=== PATIENT | female | born 1985 | race Caucasian/White ===

== ENCOUNTER 2016-04-25 07:04 | Inpatient (IN) | payer BC ==
[~2016-04-25] VITALS: Ht 160 cm; Wt 61.0 kg
[~2016-04-25 07:04] MED LIST: AMPH30TA2 PO; BCPILLS PO; MULT-506 PO
[2016-04-25 07:35] LABS: URINE APPEARANCE CLOUDY (CLEAR); URINE BILIRUBIN NEG (NEG); URINE COLOR YELLOW; URINE EPITHELIAL CELL AUTO >30 /lpf (0-5); URINE NITRITE NEG (NEG); URINE SPECIFIC GRAVITY 1.029 (1.000-1.030); UROBILINOGEN NEG (NEG)
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
[2016-04-25] MEDS ORDERED: CITA40TA4 PO (07:37)
[2016-04-25] MEDS ORDERED: MELATAB2 PO (07:37)
[2016-04-25] MEDS ORDERED: ATV5X PO (07:37)
[2016-04-25 07:38] LABS: MANUAL MICROSCOPIC REQUIRED? NO; REVIEW REQ? NO
[2016-04-25 07:52] LABS: BASO % 0.2 %; BASO ABS # 0.02 K/uL (0-0.2); COMPLETE YES; HEMATOCRIT 42.6 % (37-47); IG% 0.2 %; LYMPH % 16.4 %; LYMPH ABS # 1.47 K/uL (1.2-3.4); MEAN CELL VOLUME 89.5 fL (80-100); MEAN CORPUSCULAR HEMOGLOBIN 30.7 pg (25-34); MEAN CORPUSCULAR HGB CONC 34.3 g/dl (32-36); MEAN PLATELET VOLUME 9.5 fL (7.4-10.4); MONO % 5.7 %; NEUT % 77.5 %; PLATELET COUNT 281 K/uL (130-400); RED BLOOD COUNT 4.76 M/uL (4.2-5.4); WHITE BLOOD COUNT 8.95 K/uL (4.8-10.8)
[2016-04-25 08:07] LABS: BUN/CREATININE RATIO 15.7 (10-20); CALCIUM 9.1 mg/dl (8.5-10.1); CREATININE 0.58 mg/dl (0.60-1.20); POTASSIUM 3.9 mmol/L (3.5-5.1)
[2016-04-25 08:14] LABS: ACETAMINOPHEN < 2 ug/ml (10-30)
[2016-04-25 08:18] LABS: THYROID STIMULATING HORMONE 0.893 uIu/ml (0.300-4.500)
[2016-04-25 09:03] LABS: BENZODIAZEPINE, URINE NEG (NEG); COCAINE,URINE NEG (NEG); PHENCYCLIDINE, URINE NEG (NEG)
[2016-04-25 09:58] VITALS: O2SAT 98
[2016-04-25] MEDS ORDERED: BISMUTH SUBSALICYLATE PER ML OMNICELL CHARGE PO PRN (10:00)
[2016-04-25] MEDS ORDERED: SODIUM CHLORIDE 0.65% NA SOLN 45 ML (OCEAN) PRN (10:00)
[2016-04-25] MEDS ORDERED: ACETAMINOPHEN 325 MG TAB PO PRN (10:00)
[2016-04-25] MEDS ORDERED: hydrOXYzine HCL 25 MG TAB PO PRN ×2 (10:00)
[2016-04-25] MEDS ORDERED: ALUMINUM/MAGNESIUM SUSP 30 ML UDC PO PRN (10:00)
[2016-04-25] MEDS ORDERED: MAGNESIUM HYDROXIDE SUSP 30 ML UDC PO PRN (10:00)
[2016-04-25 11:47] VITALS: BP 118/78; PULSE 118; TEMP 36.6
[2016-04-25 12:08] VITALS: Ht 160 cm; Wt 61.0 kg
[2016-04-25] MEDS ORDERED: RISPERIDONE ODT 1MG PO PRN (12:30)
[2016-04-25] MEDS ORDERED: LORAZEPAM 1 MG TAB PO PRN (12:30)
[2016-04-25] MEDS ORDERED: LORAZEPAM 1 MG TAB PO ONE (12:45)
[2016-04-25] MEDS ORDERED: RISPERIDONE ODT 1MG PO ONE (13:00)
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
[2016-04-25] MEDS: LORAZEPAM 1 MG TAB PO SCH (21:21)
[2016-04-25] MEDS: RISPERIDONE ODT 1MG PO SCH (21:22)
[2016-04-26 06:54] VITALS: BP_SYST 105; BP_SYST 109; BP_DIAS 72; BP_DIAS 75; PULSE 109; PULSE 114; TEMP 36.4
[2016-04-26] MEDS: LORAZEPAM 1 MG TAB PO SCH (07:35)
[2016-04-26] MEDS: RISPERIDONE ODT 1MG PO SCH ×2 (07:35→21:39)
[2016-04-26 08:18] LABS: CHOLESTEROL/HDL RATIO 2.2
--- NOTE | 2016-04-26 10:52 | Psychiatric Progress Notes ---
Progress Note Date of Service Apr 26, 2016. Interval History 31 yo female admitted voluntarily with severe disturbances in mood, anxiety, sleep and thinking resulting in bizarre behaviors. Chief Complaint "I'm so tired I can't see straight.". Subjective Patient was seen & assessed interval progress reviewed with Treatment Team. The patient is very tired from the meds but is still pushing herself to go to groups. She says that she called her ex boyfriend to tell him she was sorry and tell him that she was in the hospital, but he said that he couldn't talk with her because he was instructed not to. She was hopeful to understand that he still cared about her, as she misses him, "I still love him.". She says that she feels "hurt, betrayed" by his behaviors, yet at the same time would like to be able to get back together with him "when this all blows over". She questions her own judgement in calling him, but was talking with her roommate who said she thought it was a good idea, and so thinks that she exercised reason by checking it with someone else. She believes that her thoughts are reality based today, and denies aud/vis hallucinations. We discuss the differential diagnoses including bipolar disorder, psychosis, anxiety, depression and agrees that they could all be possible. She was able to sleep for over 13 hours yesterday, but feels that she is having trouble thinking and talking clearly because of sedation. She denies SI/HI, denies aud/vis hallucinations. Review of Systems Constitutional: + fatigue ENT: No dental problems, No hearing loss, No nasal symptoms, No problem reported, No sore throat, No tinnitus, No trouble swallowing, No unusual epistaxis Respiratory: No cough, No dyspnea at rest, No dyspnea on exertion, No hemoptysis, No problem reported, No shortness of breath, No sputum, No wheezing Cardiovascular: No PND, No chest pain, No claudication, No edema, No orthopnea , No palpitations, No problem reported Abdomen: No GI bleeding, No constipation, No diarrhea, No nausea, No pain, No problem reported, No vomiting Musculoskeletal: No calf pain, No joint pain, No muscle pain, No problem reported, No swelling Neurologic: No balance problems, No memory loss, No numbness/tingling, No paralysis, No problem reported, No vertigo, No weakness Psychiatric: + depression symptoms Sleep Information Total Hours of Sleep: 13.00 Meal Information Percent of Breakfast Consumed: 100 Percent of Lunch Consumed: 100 Percent of Dinner Consumed: 75 Mental Status Exam During interview pt is: cooperative, other (tired) Appearance: appropriately dressed, appropriately groomed Eye contact is: fair Motor behavior is: no abnormal motor movements Speech: normal in rate, rhythm & volume Affect: mood congruent, tearful, blunted Mood is: depressed Thought process: goal directed Thought content: preoccupation (with ex BF) Suicidal thought are: denied Homicidal thoughts are: denied Hallucinations: denies auditory, denies visual Cognition: attention grossly intact Intelligence estimated to be: average Insight: impaired Judgement: impaired Impression Was able to sleep yesterday. Today is tired from meds. Will DC scheduled ativan but keep prn. Will continue risperdal to target possible yonatan induced by SSRI, possible psychosis. Mood clearly depressed, still grieving the end of relationship with BF, and question an ongoing degree of thought distortion related to her dealing with him. Will encourage social work to schedule meeting with parents for supplemental to be sure that all she is reporting is reality based. Continued Inpatient Care Requires inpatient care due to the severity of her condition, and the risk for harm to self and others due to impulsivity and distorted thoughts. Plan (1) Unspecified episodic mood disorder 04/26 -Continue risperdal 1 mg. BID - DC scheduled ativan due to sedation, but continue prn - Q 15 min checks for safety - Encourage participation in group and individual counseling - The patient will need psychiatric aftercare - Family meeting - Discourage contact with ex BF - FLP and FBS for monitoring on atypicals 04/26. WNL with the exception of total cholesterol 206 (2) Cannabis abuse 04/26 - Recommend abstinence (3) Alcohol abuse 04/26 -The patient's AUDIT score (11) suggest problematic drinking. Brief intervention was offered and accepted. Intervention was greater than 5 min. Brief interventions include assessing readiness to quit, advising patient to abstain from alcohol with agreement to set specific goals , anticipate barriers and problem solving solutions. The patient is contemplative with regards to transtheoretical model of change. The patient is advised to decrease alcohol consumption due to depressant effects and risk of interactions with prescription medications. The patient agreed to abstain and will be provided with recovery materals to continue to educate self on how to cope without drinking. Visit Code E&M Code: 77061 Risk Factors Assessment : Yes /single/: Yes Higher / Fall in social status: No Access to guns: No Health problems: No Mental Health Diagnoses: Yes Substance use disorders: Yes Previous attempt: No Previous psychiatric stay: No Smoker: No Protective Factors Assessment Latter Day beliefs: No : No Responsible for young children: No Employed: Yes Stable relationships: No Supportive family: Yes Data Vital Signs Last 24 Hrs: Date Time Temp Pulse Resp B/P Pulse Ox O2 Delivery O2 Flow Rate FiO2 04/26/16 06:54 36.4 109 16 105/72 114 109/75 04/25/16 11:47 36.6 118 16 118/78 Meds Administered Last 24 Hrs: Meds Administered (Past 24Hrs) Medications (Trade) Dose Ordered Sig/Nya Route Start Time Stop Time Status Last Admin Dose Admin Risperidone (Risperdal M Tab) 1 mg BID PO 04/25/16 22:00 05/25/16 21:59 04/26/16 07:35 1 MG Risperidone (Risperdal M Tab) 1 mg NOW ONCE PO 04/25/16 13:00 04/25/16 13:01 DC 04/25/16 13:14 1 MG Lorazepam (Ativan Tab) 1 mg BID PO 04/25/16 22:00 05/25/16 21:59 04/26/16 07:35 1 MG Lorazepam (Ativan Tab) 1 mg NOW ONCE PO 04/25/16 12:45 04/25/16 12:46 DC 04/25/16 13:14 1 MG Risperidone (Risperdal M Tab) 1 mg BID PRN PO 04/25/16 12:30 05/25/16 12:29 04/25/16 14:38 1 MG Lorazepam (Ativan Tab) 1 mg Q4H PRN PO 04/25/16 12:30 05/25/16 12:29 04/25/16 14:38 1 MG Lab Results Last 24 Hrs: Last 24 Hours Test 04/26/16 07:18 Fasting Glucose 92 mg/dl Triglycerides Level 104 mg/dl Cholesterol Level 206 mg/dl HDL Cholesterol 92 mg/dl LDL Cholesterol, Calculated 93 mg/dl VLDL Cholesterol, Calculated 21 mg/dl Cholesterol/HDL Ratio 2.2
[2016-04-27 06:35] VITALS: BP_SYST 100; BP_SYST 122; BP_DIAS 67; BP_DIAS 86; PULSE 105; PULSE 89; TEMP 36.9
[2016-04-27] MEDS: RISPERIDONE ODT 1MG PO SCH (07:38)
--- NOTE | 2016-04-27 12:28 | Psychiatric Progress Notes ---
Progress Note Date of Service Apr 27, 2016. Interval History 31 yo female admitted voluntarily with severe disturbances in mood, anxiety, sleep and thinking resulting in bizarre behaviors. Chief Complaint "I feel like I'm gonna cry now". Subjective Patient was seen & assessed interval progress reviewed with nursing. Staff report she is attending and participating in groups, has been calm and cooperative with care, and appears to be eating and sleeping well. Her mother visited last eating, and they will have a family meeting this afternoon. Today , she states that she is very upset, as "thought I was doing okay, but they have me on sleep medicine morning and night, and now I'm nauseous, and I'm not okay." She has some difficulty calming down and clarifying her concerns. She reports excessive sleepiness, and thinks this is from the medication, although also stated she had not been sleeping for 2 weeks prior to admission. She attributes her lack of sleep to an increase in Celexa. She is upset after reviewing her treatment team and hearing her length of stay, as she was hoping to leave the hospital in a day or 2. She says she is here because "I had a freak out about my ex, was selling himself on [employer] list, hadn't slept for a long time because they upped my citalopram." Her mood is "just tired, kind of chill, here, hopeful in a way." She denies thoughts of harming herself or anyone else. She thinks it's been helpful to go to groups and to "know I'm not alone." She is not sure what she wants to talk about with her mother in their meeting, stating "someone told me it's because of them that I have to stay, they 're scared, which I can understand, but I'm gonna be mad." She reports blurred vision, noting that she is supposed to wear glasses for long distances but does not usually wear them, but it seems worse here. Sleep Information Total Hours of Sleep: 8.00 Meal Information Percent of Breakfast Consumed: 100 Percent of Lunch Consumed: 90 Percent of Dinner Consumed: 100 Mental Status Exam During interview pt is: cooperative Appearance: appropriately dressed, appropriately groomed Eye contact is: fair Motor behavior is: steady gait & station, no abnormal motor movements Speech: normal in rate, rhythm & volume Affect: tearful, labile, other (incongruent with stated mood) Mood is: other ("better") Thought process: goal directed Thought content: reality based without delusions Suicidal thought are: denied Homicidal thoughts are: denied Hallucinations: denies auditory, denies visual Cognition: attention grossly intact Intelligence estimated to be: average Insight: impaired Judgement: impaired Impression Sleep has improved, but is concerned that daytime sleepiness is due to medications.. Scheduled Ativan has been discontinued, and will consolidate risperidone to bedtime to try to limit daytime sedation. Mood depressed and labile, still grieving the end of relationship with BF, and question an ongoing degree of thought distortion related to her dealing with him. Will encourage social work to schedule meeting with parents for supplemental to be sure that all she is reporting is reality based. Continued Inpatient Care Requires inpatient care due to the severity of her condition, and the risk for harm to self and others due to impulsivity and distorted thoughts. Plan (1) Unspecified episodic mood disorder 04/26 - Continue risperdal 1 mg. BID - DC scheduled ativan due to sedation, but continue prn - Q 15 min checks for safety - Encourage participation in group and individual counseling - The patient will need psychiatric aftercare - Family meeting - Discourage contact with ex BF - FLP and FBS for monitoring on atypicals 04/26. WNL with the exception of total cholesterol 206 04/27 - Consolidate risperidone to 2 mg at bedtime for tomorrow. - Family meeting with mother today. - Will need outpatient psychiatric follow-up. (2) Cannabis abuse 04/26 - Recommend abstinence (3) Alcohol abuse 04/26 -The patient's AUDIT score (11) suggest problematic drinking. Brief intervention was offered and accepted. Intervention was greater than 5 min. Brief interventions include assessing readiness to quit, advising patient to abstain from alcohol with agreement to set specific goals , anticipate barriers and problem solving solutions. The patient is contemplative with regards to transtheoretical model of change. The patient is advised to decrease alcohol consumption due to depressant effects and risk of interactions with prescription medications. The patient agreed to abstain and will be provided with recovery materals to continue to educate self on how to cope without drinking. Discharge / Aftercare Planning Primary Care Physician: Name: Dr Rodriguez at [facility] Phone Number: [phone] Psychiatrist: Name: fariha Dramatic Coach: Name: fariha Visit Code E&M Code: 29269 Risk Factors Assessment : Yes /single/: Yes Higher / Fall in social status: No Access to guns: No Health problems: No Mental Health Diagnoses: Yes Substance use disorders: Yes Previous attempt: No Previous psychiatric stay: No Smoker: No Protective Factors Assessment Denominational beliefs: No : No Responsible for young children: No Employed: Yes Stable relationships: No Supportive family: Yes Data Vital Signs Last 24 Hrs: Date Time Temp Pulse Resp B/P Pulse Ox O2 Delivery O2 Flow Rate FiO2 04/27/16 06:35 36.9 105 16 100/67 89 122/86 Meds Administered Last 24 Hrs: Meds Administered (Past 24Hrs) Medications (Trade) Dose Ordered Sig/Nya Route Start Time Stop Time Status Last Admin Dose Admin Risperidone (Risperdal M Tab) 1 mg BID PO 04/25/16 22:00 04/27/16 11:17 DC 04/27/16 07:38 1 MG Risperidone (Risperdal M Tab) 1 mg NOW ONCE PO 04/25/16 13:00 04/25/16 13:01 DC 04/25/16 13:14 1 MG Lorazepam (Ativan Tab) 1 mg BID PO 04/25/16 22:00 04/26/16 12:02 DC 04/26/16 07:35 1 MG Lorazepam (Ativan Tab) 1 mg NOW ONCE PO 04/25/16 12:45 04/25/16 12:46 DC 04/25/16 13:14 1 MG Risperidone (Risperdal M Tab) 1 mg BID PRN PO 04/25/16 12:30 05/25/16 12:29 04/25/16 14:38 1 MG Lorazepam (Ativan Tab) 1 mg Q4H PRN PO 04/25/16 12:30 05/25/16 12:29 04/25/16 14:38 1 MG
[2016-04-27] MEDS ORDERED: RISPERIDONE ODT 1MG PO SCH (22:00)
[2016-04-28 06:36] VITALS: BP_SYST 110; BP_SYST 115; BP_DIAS 69; BP_DIAS 70; PULSE 106; PULSE 121; TEMP 36.9
[2016-04-28] MEDS ORDERED: RSP2 PO (09:30)
--- NOTE | 2016-04-28 09:44 | Discharge Instructions ---
Discharge Information Report Includes Report will include the: Discharge Instructions & Summary Admission Admission Date / Time: Apr 25, 2016 at 09:59 Reason for Admission: Suicide Attempt Discharge Discharge Diagnosis / Problem: Mood disorder unspecified Condition at Discharge: Fair Discharge Goals Goal(s): Decrease discomfort, Improve disease control, Prevent Disease Progression Activity Recommendations Activity Limitations: resume your previous activity . Instructions / Follow-Up Instructions / Follow-Up . SPECIAL CARE INSTRUCTIONS: 1. Follow through with your scheduled aftercare appointments. If unable to keep an appointment, please call to reschedule. 2. Take your medication only as prescribed. Medication should not be changed or stopped without the approval of your doctor. In the event of worsening symptoms or concerns about side effects, contact your doctor immediately. 3. Utilize new healthy coping skills, anger management skills, and stress management skills learned during your hospitalization. Journal feelings and process them with a support person. Identify stressors or situations that may result in relapse, deterioration or inappropriate behaviors and develop a plan to deal with those issues. 4. If your coping skills are ineffective and you are in crisis, contact your outpatient providers for direction. If unable to reach your providers, please call the CAN HELP LINE AT or go to the closest Emergency Room. 5. Avoid alcohol and un-prescribed drugs. 6. You have been provided with the Mental Health Advance Directives Pamphlet for your review. AFTERCARE APPOINTMENTS: * Please call your insurance company prior to your scheduled appointment to confirm your aftercare providers are covered. Take your insurance information to your appointments. . Discharge / Aftercare Planning Primary Care Physician: Name: Dr Rodriguez at [facility] Phone Number: [phone] Appointment Notes: as needed Psychiatrist: Name: Dr Fish at [facility] Phone Number: [phone] Date of Appointment: May 03, 2016 Time of Appointment: 220 Appointment Notes: also 4-12 at 320 and 5-3 at 1240 Therapist: Name Of Therapist: Dr Oro at [facility] Phone Number: [phone] Date of Appointment: May 04, 2016 Time of Appointment: 1:30 Appointment Comments: take ID card and copay and allow 48 hr cancelation to avoid charge Lasting Machine Operator Bed: Name: fariha . Follow-Up Care Plan for Follow-Up Care: The patient will have prompt [facility] Current Hospital Diet Patient's current hospital diet: Regular Diet Discharge Diet Recommended Diet: Regular Diet Procedures Procedures Performed: No Pending Studies Pending Studies at Discharge: No Medical Emergencies . Who to Call and When: Medical Emergencies: For questions or emergencies related to your hospital stay, please contact the Inpatient Behavioral Health Unit at [phone]. A woodworking machine offbearer is on-call 28/08 for the Behavioral Health Unit for emergencies At any time you feel your situation is an emergency, you may also call 911 immediately. . Non-Emergent Contact Non-Emergency issues call your: Primary Care Provider, Psychiatrist, Therapist Advance Directives Existing Advance Directive: No Do You Have an Existing Mental: No Existing Living Will: No Existing Power of Feather Curling Machine Operator: No Advance Directives Info Given: To Pt/S.O. Discharge Summary Admission HPI Per the Admitting provider: Please see attached H&P Hospital Course (1) Unspecified episodic mood disorder 04/26 - Continue risperdal 1 mg. BID - DC scheduled ativan due to sedation, but continue prn - Q 15 min checks for safety - Encourage participation in group and individual counseling - The patient will need psychiatric aftercare - Family meeting - Discourage contact with ex BF - FLP and FBS for monitoring on atypicals 04/26. WNL with the exception of total cholesterol 206 04/27 - Consolidate risperidone to 2 mg at bedtime for tomorrow. - Family meeting with mother today. - Will need outpatient psychiatric follow-up. (2) Cannabis abuse 04/26 - Recommend abstinence 04/28 - Patient has agreed to abstain from alcohol and all illegal substances. She has been provided counseling re: the impact of these to mood disorders. Followup substance counseling will be provided by Rebeka Oro at [facility]. (3) Alcohol abuse 04/26 -The patient's AUDIT score (11) suggest problematic drinking. Brief intervention was offered and accepted. Intervention was greater than 5 min. Brief interventions include assessing readiness to quit, advising patient to abstain from alcohol with agreement to set specific goals , anticipate barriers and problem solving solutions. The patient is contemplative with regards to transtheoretical model of change. The patient is advised to decrease alcohol consumption due to depressant effects and risk of interactions with prescription medications. The patient agreed to abstain and will be provided with recovery materals to continue to educate self on how to cope without drinking. 04/28 - Patient has agreed to abstain, and has received counseling about the negative impact of alcohol to mood. Follow up counseling will be provided by Rebeka Oro at [facility]. Risk Factors Assessment : Yes /single/: Yes Higher / Fall in social status: No Access to guns: No Health problems: No Mental Health Diagnoses: Yes Substance use disorders: Yes Previous attempt: No Previous psychiatric stay: No Smoker: No Protective Factors Assessment Anabaptist beliefs: No : No Responsible for young children: No Employed: Yes Stable relationships: No Supportive family: Yes Day of Discharge Assessment COURSE OF HOSPITALIZATION: During the patient's 3 day stay, she was started on Risperdal 1 mg twice a day eventually switching the dosing to all at bedtime. She tolerated this with minimal amounts of sedation. Her Celexa was discontinued due to the fact she had been activated, with impaired sleep and distorted thinking since increasing the dose to 40 mg. Her diagnosis was not completely clear during her stay. She had been treated for depression and anxiety however there were other factors making diagnosis unclear. She had been abusing multiple substances including alcohol, benzodiazepines and opiates. She was also under significant amount of interpersonal stress. She has never had any bipolar indications in the past, however after increasing Celexa to 40 mg, she had significantly impaired sleep and admitted that she has had times when she has had periods of what she calls "enlightenment" that can last up to a week. During these times she endorsed feeling like she consult [employer] for the world. During her first day on the unit, her thinking continued to be somewhat confused and distorted. She made a phone call to her ex-boyfriend to alert him that she was in the hospital, hoping to get some support from him, however he indicated to her that he has been instructed not to talk with her as if he is pursuing some sort of protection from abuse order. She was able to look back on this was not an appropriate thing to do. Family meeting was held with her parents on the second day of her admission. They felt that she was now back to baseline. We discussed the impact of alcohol and illegal substances to mood disorders and she agrees to abstain. Further counseling will people provided by her therapist at some point, Rebeka Cerda. She will also see Dr. Gabriel Fish at some point for ongoing psychiatric management. DAY OF DISCHARGE ASSESSMENT: Today the patient is requesting discharge. She feels that her thinking is no longer distorted, and can see more clearly about what she has done in the past and what she needs to do in the future. She again agrees to abstain from alcohol or any other illegal substance and to participate in follow-up. She denies any suicidal or homicidal thinking. She denies auditory or visual hallucinations. Today she is casually and appropriately dressed and groomed. Gait and station are within normal limits. Affect is tired. Speech is of normal rate volume and tone. Thoughts are organized and goal directed and without overt evidence of thought disorder. Recent and remote memory are intact per conversation. Intelligence is estimated to be average. Insight and judgment are improved over admission. Laboratory 04/25/16 07:20 Red Blood Count 4.76, Mean Corpuscular Volume 89.5, Mean Corpuscular Hemoglobin 30.7, Mean Corpuscular Hemoglobin Concent 34.3, Mean Platelet Volume 9.5, Neutrophils (%) (Auto) 77.5, Lymphocytes (%) (Auto) 16.4, Monocytes (%) (Auto) 5.7, Eosinophils (%) (Auto) 0.0, Basophils (%) (Auto) 0.2, Neutrophils # (Auto) 6.93, Lymphocytes # (Auto) 1.47, Monocytes # (Auto) 0.51, Eosinophils # (Auto) 0.00, Basophils # (Auto) 0.02 04/25/16 07:20 Test 04/25/16 07:14 04/25/16 07:20 04/25/16 07:31 04/25/16 08:30 Urine Color YELLOW Urine Appearance CLOUDY (CLEAR) Urine pH 6.0 (4.5-7.5) Urine Specific [place] 1.029 (1.000-1.030) Urine Protein TRACE (NEG) Urine Glucose (UA) NEG (NEG) Urine Ketones NEG (NEG) Urine Occult Blood 2+ (NEG) Urine Nitrite NEG (NEG) Urine Bilirubin NEG (NEG) Urine Urobilinogen NEG (NEG) Urine Leukocyte Esterase NEG (NEG) Urine WBC (Auto) 1-5 /hpf (0-5) Urine RBC (Auto) 5-10 /hpf (0-4) Urine Hyaline Casts (Auto) 1-5 /lpf (0-5) Urine Epithelial Cells (Auto) >30 /lpf (0-5) Urine Bacteria (Auto) 1+ (NEG) Urine Test NEG (NEG) White Blood Count 8.95 K/uL (4.8-10.8) Red Blood Count 4.76 M/uL (4.2-5.4) Hemoglobin 14.6 g/dL (12.0-16.0) Hematocrit 42.6 % (37-47) Mean Corpuscular Volume 89.5 fL (80-100) Mean Corpuscular Hemoglobin 30.7 pg (25-34) Mean Corpuscular Hemoglobin Concent 34.3 g/dl (32-36) Platelet Count 281 K/uL (130-400) Mean Platelet Volume 9.5 fL (7.4-10.4) Neutrophils (%) (Auto) 77.5 % Lymphocytes (%) (Auto) 16.4 % Monocytes (%) (Auto) 5.7 % Eosinophils (%) (Auto) 0.0 % Basophils (%) (Auto) 0.2 % Neutrophils # (Auto) 6.93 K/uL (1.4-6.5) Lymphocytes # (Auto) 1.47 K/uL (1.2-3.4) Monocytes # (Auto) 0.51 K/uL (0.11-0.59) Eosinophils # (Auto) 0.00 K/uL (0-0.5) Basophils # (Auto) 0.02 K/uL (0-0.2) RDW Standard Deviation 43.6 fL (36.4-46.3) RDW Coefficient of Variation 13.4 % (11.5-14.5) Immature Granulocyte % (Auto) 0.2 % Immature Granulocyte # (Auto) 0.02 K/uL (0.00-0.02) Anion Gap 10.0 mmol/L (3-11) Est Creatinine Clear Calc Drug Dose 117.3 ml/min Estimated GFR () 143.4 Estimated GFR (Non- 123.7 BUN/Creatinine Ratio 15.7 (10-20) Calcium Level 9.1 mg/dl (8.5-10.1) Total Bilirubin 0.6 mg/dl (0.2-1) Direct Bilirubin 0.1 mg/dl (0-0.2) Aspartate Amino Transf (AST/SGOT) 15 U/L (15-37) Alanine Aminotransferase (ALT/SGPT) 21 U/L (12-78) Alkaline Phosphatase 69 U/L (45-117) Total Protein 7.5 gm/dl (6.4-8.2) Albumin 4.1 gm/dl (3.4-5.0) Thyroid Stimulating Hormone (TSH) 0.893 uIu/ml (0.300-4.500) Salicylates Level < 1.7 mg/dl (2.8-20) Acetaminophen Level < 2 ug/ml (10-30) Ethyl Alcohol mg/dL < 3.0 mg/dl (0-3) Bedside Glucose 103 mg/dl (70-90) Urine Opiates Screen NEG (NEG) Urine Methadone, Qualitative NEG (NEG) Urine Barbiturates NEG (NEG) Urine Phencyclidine (PCP) Level NEG (NEG) Ur Amphetamine/Methamphetamine NEG (NEG) MDMA (Ecstasy) Screen NEG (NEG) Urine Benzodiazepines Screen NEG (NEG) Urine Cocaine Metabolite NEG (NEG) Urine Marijuana (THC) NEG (NEG) Test 04/26/16 07:18 Fasting Glucose 92 mg/dl (70-99) Triglycerides Level 104 mg/dl (0-150) Cholesterol Level 206 mg/dl (0-200) HDL Cholesterol 92 mg/dl LDL Cholesterol, Calculated 93 mg/dl VLDL Cholesterol, Calculated 21 mg/dl Cholesterol/HDL Ratio 2.2 Total Time Total Time Spent (min): Greater than 30 minutes Total Time Included: examination of the patient, discharge planning, medication reconciliation, communication with other providers Tobacco Cessation at Discharge FDA approved Prescription: non-smoker
[2016-04-28] MEDS ORDERED: DESTROY THIS MEDICATION ONE (10:45)
[2016-04-28] MEDS ORDERED: RISPERIDONE 2 MG TAB PO SCH (22:00)
== END 2016-04-28 11:01 | disposition home or self-care (01) | DRG 885 ==
LOC: C.EDB 07:05 → C.MHU 09:59
PROVIDERS: ADMIT Psychiatry & Neurology Psychiatry; ATTEND Psychiatry & Neurology Psychiatry
DX: F39 Unspecified mood [affective] disorder (principal); F19.20 Other psychoactive substance dependence, uncomplicated; F17.210 Nicotine dependence, cigarettes, uncomplicated; F10.10 Alcohol abuse, uncomplicated; F29 Unspecified psychosis not due to a substance or known physiological condition; F12.10 Cannabis abuse, uncomplicated

== ENCOUNTER → 2016-07-26 | Outpatient (CLI) | payer BC ==
[~2016-07-26] MED LIST changes: -AMPH30TA2 PO; -BCPILLS PO; +MELATAB2 PO; -MULT-506 PO; +RSP2 PO
--- NOTE | 2016-07-26 18:40 | DIAGNOSTIC IMAGING REPORT ---
LEFT HIP UNILATERAL 2 VIEWS CLINICAL HISTORY: LEFT HIP PAIN, DIFFICULTY BEARING WEIGHT, GROIN PAIN COMPARISON: None. DISCUSSION: No fractures or dislocations are visualized. There are no erosive or destructive changes. There is a probable accessory left transverse process sacral articulation. IMPRESSION: No evidence of fracture. No destructive lesions are visualized. Electronically signed by: Adan White M.D. 07/26/2016 6:39 PM Dictated Date/Time: 07/26/2016 6:38 PM
== END | disposition home or self-care (01) ==
LOC: C.RAD 17:58
PROVIDERS: ATTEND Chiropractor Orthopedic
DX: M25.552 Pain in left hip (principal)

== ENCOUNTER 2024-07-25 19:45 | Inpatient (IN) ==
[2024-07-25] MEDS: BUTORPHANOL TARTRATE 1 MG/ML VIAL IV ONE (22:09)
[2024-07-25] MEDS: BUTORPHANOL TARTRATE 1 MG/ML VIAL IV PRN (23:38)
[2024-07-26 00:06] LABS: Appearance Urine Clear (Clear); Bilirubin Urine Negative (Negative); Blood Urine Negative (Negative); Color Urine Yellow; Glucose Urine UA Negative (Negative); Ketones Urine Trace (Negative); Leukocyte Esterase Urine Negative (Negative); Nitrite Urine Negative (Negative); Protein Urine Negative (Negative); Specific Gravity Urine 1.004 (1.000-1.030); Urobilinogen Urine Negative (Negative); pH Urine 6.5 (4.5-7.5)
--- NOTE | 2024-07-26 00:08 | History & Physical Report ---
Date of Service July 26, 2024 History of Present Illness Chief Complaint: Intrauterine 39 weeks 3 days gestation. Uterine contractions associated with severe pain Primary Care Provider: Mina Rodriguez MD Patient is a 40-year-old 2 para 0 she is in good general health her due date 07/29/2024 she has had no problems. She has had sporadic contractions since Sunday of this week. Had trouble sleeping. Was seen early in the day on Sunday. Cervix was closed. She then began to have some bleeding and spotting at 3 PM. She was instructed to come to maternity for evaluation. Allergies Allergy/AdvReac Type Severity Reaction Status Date / Time Bactrim Allergy Unknown hives Unverified 04/25/16 07:36 sulfamethoxazole [Bactrim] Allergy Unknown hives Verified 07/23/24 05:07 trimethoprim [Bactrim] Allergy Unknown hives Verified 07/23/24 05:07 Home Medications Medication Instructions Recorded Confirmed Type [id number] 1 mg 1 tab PO DAILY 07/02/24 07/25/24 History tablet Vitron-C 65 - 125 mg PO HS 07/25/24 07/25/24 History acetaminophen 325 mg PO Q6 PRN Pain 07/25/24 07/25/24 History promethazine 25 mg PO Q6 PRN Nausea And Vomiting 07/25/24 07/25/24 History Past Med/Surg History Problem List False labor History of LEEP (loop electrosurgical excision procedure) of cervix complicating AMA (advanced maternal age) primigravida 35+ with 39 completed weeks gestation Uterine contractions at greater than 20 weeks of gestation Dehydration during Ketonuria Irregular uterine contractions Infertility, female Unspecified episodic mood disorder "differential includes bipolar disorder, major depression with psychotic features, primary thought disorder, substance induced mood disorder" Suicide attempt Cannabis abuse Alcohol abuse Medical History Abnormal Pap smear of cervix Surgical History History of colposcopy with cervical biopsy Social History (Updated 07/25/24 @ 20:07 by Malia Ma RN) Smoking Status: Former smoker Tobacco Type: E-cigarettes / Vaping Hx Alcohol Use: Yes (sober for two years) Hx Substance Use: No Preferred Language: Korean Communication Ability: Effective Visual Impairment: No Limitations Hearing Ability: Normal Shutdown Planner Required: No Beliefs That Will Affect Care: None marital status: marital status details: Tim Smith Current Living Situation: Spouse Current Living Situation Comment: house with with , 2 dogs current occupational status: employed current occupation: [employer] Support Feels Safe at Home: Yes Safety Concerns: Feels Safe At This Time Diet: regular Assistive Devices: None Physical Exam Physical Exam: Patient 40-year-old white female alert oriented x 3 cooperative in moderate amount of distress. Heart had a regular rhythm S1 and S2 are normal. Lungs are clear to auscultation percussion. There is no CVA tenderness. Trachea was midline there was no cervical adenopathy. Abdomen is consistent with a term size fetus. Pelvic exam revealed a vertex presentation at approximately 0 station. Cervix was posterior closed 90% effaced. Was no calf tenderness. Results & Data Results & Data Vital Signs (Past 12 Hours) Vital Signs Temp Pulse Resp BP Pulse Ox 07/26/24 00:01 88 96 07/25/24 23:56 94 H 96 07/25/24 23:51 86 96 07/25/24 23:46 70 96 07/25/24 23:42 81 94 07/25/24 23:41 78 123/70 94 07/25/24 20:12 100 H 132/76 07/25/24 20:02 100 H 132/76 07/25/24 20:01 18 07/25/24 20:01 36.8 C 18
[2024-07-26] MEDS: LACTATED RINGER'S 1,000 ML IV SCH (07:59)
[2024-07-26] MEDS ORDERED: LIDOCAINE 1% LOCAL 20 ML VIAL INFIL PRN (10:14)
[2024-07-26] MEDS ORDERED: OXYTOCIN 30 UNITS/NSS 30 UNITS/500 ML BAG IV PRN ×2 (10:14→17:49)
[2024-07-26] MEDS ORDERED: LACTATED RINGER'S 1,000 ML IV PRN (10:14)
[2024-07-26 10:50] LABS: Hematocrit (blood only) 36.4 % (37.0-47.0); Hemoglobin 12.7 g/dl (12.0-16.0); Mean Corpuscular Hgb Conc 34.9 g/dL (32.0-36.0); Mean Corpuscular Volume 86.1 fL (80.0-100.0); Mean Platelet Volume 9.9 fL (9.4-12.4); Platelet Count 188 K/uL (130-400); RDW Coefficient of Variation 14.6 % (11.5-14.5); RDW Standard Deviation 45.5 fL (36.4-46.3); Red Blood Count 4.23 M/uL (4.20-5.40); White Blood Count 15.04 K/ul (4.8-10.8)
[2024-07-26] MEDS: LACTATED RINGER'S 1,000 ML IV ONE (10:55)
--- NOTE | 2024-07-26 10:59 | Anesthesiology Consultation ---
Date of Service July 26, 2024 Assessment & Plan (1) Encounter for pre-operative examination: Chart Review Chart Review: Acceptable Risk for Labor Epidural History Height/Weight Height: 5 ft 3 in Weight: 83.007 kg Allergies Allergy/AdvReac Type Severity Reaction Status Date / Time Bactrim Allergy Unknown hives Unverified 04/25/16 07:36 sulfamethoxazole [Bactrim] Allergy Unknown hives Verified 07/23/24 05:07 trimethoprim [Bactrim] Allergy Unknown hives Verified 07/23/24 05:07 Medications Home Medications Medication Instructions Recorded Confirmed Last Taken [id number] 1 mg 1 tab PO DAILY 07/02/24 07/25/24 07/24/24 tablet Vitron-C 65 - 125 mg PO HS 07/25/24 07/25/24 07/25/24 08:00 acetaminophen 325 mg PO Q6 PRN Pain 07/25/24 07/25/24 07/25/24 17:00 promethazine 25 mg PO Q6 PRN Nausea And Vomiting 07/25/24 07/25/24 Unknown Active Medications Generic Name Dose Route Start Last Admin Trade Name Freq PRN Reason Stop Dose Admin Butorphanol Tartrate 1 mg 07/25/24 21:49 07/26/24 07:26 Butorphanol Tartrate 1 Mg/Ml Vial IV 08/24/24 21:48 1 mg Q1HWA PRN Administration Pain Lactated Ringer's 1,000 mls @ 125 mls/hr 07/26/24 07:00 07/26/24 07:59 Lr IV 07/29/24 06:59 125 mls/hr .Q8H TERRI Administration Past Medical History Medical History (Updated 07/26/24 @ 10:59 by Thomas Watson MD) Unspecified episodic mood disorder "differential includes bipolar disorder, major depression with psychotic features, primary thought disorder, substance induced mood disorder" Cannabis abuse Alcohol abuse Abnormal Pap smear of cervix Past Surgical History Surgical History History of colposcopy with cervical biopsy Social History Smoking Status: Former smoker Hx Alcohol Use: Yes (sober for two years) alcohol intake frequency: other Hx Substance Use: No Physical Exam Vital Signs Last Vital Signs Temp 36.9 C 07/26/24 07:15 Pulse 95 H 07/26/24 09:40 Resp 16 07/26/24 07:15 BP 115/55 L 07/26/24 07:06 Pulse Ox 97 07/26/24 09:40 Testing Laboratory Results 07/26/24 10:29 Urine Color Yellow 07/25/24 23:30 Urine Appearance Clear (Clear) 07/25/24 23:30 Urine pH 6.5 (4.5-7.5) 07/25/24 23:30 Ur Specific [place] 1.004 (1.000-1.030) 07/25/24 23:30 Urine Protein Negative (Negative) 07/25/24 23:30 Urine Glucose (UA) Negative (Negative) 07/25/24 23:30 Urine Ketones Trace (Negative) H 07/25/24 23:30 Urine Nitrite Negative (Negative) 07/25/24 23:30 Ur Leukocyte Esterase Negative (Negative) 07/25/24 23:30
[2024-07-26] MEDS: fentANYL 2 MCG/ML BUPIVacaine 0.125%-NSS 100ML BAG ONE (11:10)
[2024-07-26] MEDS ORDERED: NALOXONE HCL 1 MG in SODIUM CHLORIDE 0.9% 1,000 ML IV PRN (11:27)
[2024-07-26] MEDS: LIDOCAINE 2%/EPINEPHRINE 1:200,000 20 ML PF ONE (11:27)
[2024-07-26] MEDS ORDERED: SODIUM CHLORIDE 0.9% PF INJ 10 ML VIAL EPI PRN (11:27)
[2024-07-26] MEDS: fentaNYL citrate PF 100 MCG/2 ML VIAL ONE (11:27)
[2024-07-26] MEDS ORDERED: NALOXONE HCL 0.4 MG/1 ML VIAL/CARP IV PRN (11:27)
[2024-07-26] MEDS ORDERED: ePHEDrine sulfate 50 MG/ML AMP IV PRN (11:27)
[2024-07-26] MEDS ORDERED: fentaNYL citrate PF 100 MCG/2 ML VIAL EPI PRN (11:27)
[2024-07-26] MEDS: BUPIVACAINE 0.25% PF 30 ML VIAL ONE (11:27)
[2024-07-26] MEDS ORDERED: LIDOCAINE 2% MPF LOCAL 5 ML VIAL EPI PRN (11:27)
[2024-07-26] MEDS ORDERED: fentANYL 2 MCG/ML BUPIVacaine 0.125%-NSS 100ML BAG EPI PRN (11:27)
[2024-07-26] MEDS ORDERED: ONDANSETRON INJ 2 MG/ML 2 ML VIAL IV PRN (11:27)
[2024-07-26] MEDS ORDERED: ROPIVACAINE 0.5% PF 5 MG/ML 20 ML VIAL EPI PRN (11:27)
[2024-07-26] MEDS ORDERED: BUPIVACAINE 0.25% PF 30 ML VIAL EPI PRN (11:27)
[2024-07-26] MEDS: OXYTOCIN 30 UNITS/NSS 30 UNITS/500 ML BAG IV PRN (11:43)
[2024-07-26] MEDS: BUPIVACAINE 0.25% PF 30 ML VIAL EPI STA (15:49)
[2024-07-26] MEDS: SODIUM CHLORIDE 0.9% PF INJ 10 ML VIAL ONE (15:49)
[2024-07-26] MEDS: ePHEDrine sulfate 50 MG/ML AMP ONE (15:49)
[2024-07-26] MEDS: fentaNYL citrate PF 100 MCG/2 ML VIAL EPI STA (15:49)
[2024-07-26] MEDS: SODIUM CHLORIDE 0.9% PF INJ 10 ML VIAL EPI STA (15:53)
[2024-07-26] MEDS: LIDOCAINE 2%/EPINEPHRINE 1:200,000 20 ML PF EPI STA (15:53)
[2024-07-26] MEDS: METHYLERGONOVINE MALEATE 0.2 MG/ML AMP ONE (17:04)
[2024-07-26] MEDS ORDERED: METHYLERGONOVINE MALEATE 0.2 MG/ML AMP IM ONE (17:49)
[2024-07-26] MEDS ORDERED: ACETAMINOPHEN 325 MG TAB PO PRN (17:49)
[2024-07-26] MEDS ORDERED: DIPHTHER/TETAN/PERTUS Vaccine (Tdap, Adol/Adult) 0.5mL IM ONE (17:49)
[2024-07-26] MEDS ORDERED: oxyCODONE/ACETAMINOPHEN 5mg/325mg TAB PO PRN (17:49)
[2024-07-26] MEDS ORDERED: HYDROCORTISONE ACETATE 25 MG SUPP PR PRN (17:49)
[2024-07-26] MEDS ORDERED: ACETAMINOPHEN W/CODEINE #3 1 TAB PO PRN (17:49)
[2024-07-26] MEDS ORDERED: BENZOCAINE 20% SPRY 85 APPLN/85 GM CAN EXT PRN (17:49)
[2024-07-26] MEDS ORDERED: bisacodyL 10 MG SUPP PR PRN (17:49)
--- NOTE | 2024-07-26 17:54 | Delivery Summary ---
Vaginal Delivery Summary Date of Service July 26, 2024 Vaginal Delivery Summary Patient is followed in [facility] for care and delivery. Is a 1 para 1. Admitted in labor at 39 weeks 4 days gestation. She had been in and out of labor days prior to admission. Been unable to sleep. Initially on admission she was dehydrated. We gave her IV fluids. Pain medication throughout the night. The following morning she went from close to 4 to 5 cm and paperthin. She then requested an had an epidural for pain control. Membranes were ruptured surgically meconium fluid was noted. IV Pitocin was used to augment the contractions. She went to full dilatation. And with 7 contractions pushed out a live infant via direct occiput anterior position. Infant was suctioned through the mouth and the nose. Nuchal cord was not around the neck but was parallel to the 's body. Cord was allowed to pulse for 1 full minute. Cord was then clamped and cut. Cord blood was taken. With IV Pitocin running the placenta was removed intact. Inspection of the perineum revealed a second-degree laceration. This was repaired anatomically. The vaginal mucosa was approximated out and to beyond the hymenal ring with a continuous Vicryl suture. A deep suture of Vicryl was used approximate the bulbocavernosus muscle. 2 interrupted sutures were used approximate the perineal body. And the perineal skin edges were approximated with a running subcuticular suture. Patient tolerated these procedures well. Quantitative blood loss was 110 mL.
[2024-07-26] MEDS: DOCUSATE SODIUM 100 MG CAP PO SCH (20:38)
[2024-07-26] MEDS: IBUPROFEN 600 MG TAB PO PRN (20:38)
[2024-07-27] MEDS: CALCIUM CARBONATE 500 MG CHEWABLE TAB PO PRN (01:21)
[2024-07-27 06:27] LABS: Hematocrit (blood only) 34.6 % (37.0-47.0); Hemoglobin 11.5 g/dl (12.0-16.0); Mean Corpuscular Hemoglobin 29.4 pg (25.0-34.0); Mean Corpuscular Hgb Conc 33.2 g/dL (32.0-36.0); Mean Corpuscular Volume 88.5 fL (80.0-100.0); Mean Platelet Volume 10.3 fL (9.4-12.4); Platelet Count 174 K/uL (130-400); RDW Coefficient of Variation 14.6 % (11.5-14.5); RDW Standard Deviation 46.6 fL (36.4-46.3); Red Blood Count 3.91 M/uL (4.20-5.40)
[2024-07-27] MEDS: PRENATAL VITAMIN 1 TAB PO SCH (08:48)
--- NOTE | 2024-07-27 09:21 | Obstetrical Progress Note ---
Date of Service July 27, 2024 Assessment & Plan Admission and Anticipated Discharge Date Admission Date: July 26, 2024 Subjective abdomen soft and non tender no calf tenderness ambulating well vaginal bleeding scant hgb 11.5 Results & Data Vital Signs (Past 12 Hours) Vital Signs Temp Pulse Resp BP Pulse Ox O2 Del Method 07/27/24 04:45 36.5 C 84 16 107/66 98 Room Air 07/27/24 00:30 36.7 C 90 16 125/76 97 Room Air 07/26/24 21:30 Room Air
--- NOTE | 2024-07-27 12:00 | Anesthesia Procedure Note ---
Date of Service July 27, 2024 Anesthesia Post Epidural Note Vital Signs Vital Signs: Temp Pulse Resp BP Pulse Ox O2 Del Method 36.9 C 87 18 119/73 96 Room Air 07/27/24 08:45 07/27/24 08:45 07/27/24 08:45 07/27/24 08:45 07/27/24 08:45 07/27/24 08:45 Pain Intensity Perineal: Pain Intensity: 2 Notes Mental Status: alert / awake / arousable Nausea / Vomiting: adequately controlled Pain: adequately controlled Airway Patency, RR, SpO2: stable & adequate BP & HR: stable & adequate Hydration State: stable & adequate Neuraxial Anesthesia: was administered and sensory block is resolving Anesthetic Complications: no major complications apparent Epidural: Removed without complications and With tip intact
[2024-07-27] MEDS: bisacodyL 5 MG TABEC PO SCH (20:42)
[2024-07-28 00:38] VITALS: TEMP 98.1
[2024-07-28 06:01] LABS: Hematocrit (blood only) 32.4 % (37.0-47.0); Hemoglobin 11.2 g/dl (12.0-16.0)
[2024-07-28 07:19] VITALS: BP 121/78; PULSE 91; RESP 18; O2SAT 96
--- NOTE | 2024-07-28 09:20 | Obstetrical Progress Note ---
Date of Service July 28, 2024 Assessment & Plan (1) with 39 completed weeks gestation: Plan discharged home Subjective Ambulation: ambulating normally Voiding: no voiding problems Passing Gas:: Yes Diet Tolerance:: regular diet Lochia:: Small Feeding Type:: breast feeding Current Pain Level(1-10): 0 doing well. plans for d/c today. Physical Exam Constitutional WD/WN, vitals as above Gastrointestinal (Abdomen) Inspection/Auscultation: abdomen normal to inspection abdomen soft and non-tender. fundus firm below U. Musculoskeletal Extremities: extremities normal to inspection Skin no rashes, warm and dry Neurologic patellar DTR's 2+ bilat, sensation intact Psychiatric A+Ox3, euthymic affect Results & Data Vital Signs (Past 12 Hours) Vital Signs Temp Pulse Resp BP Pulse Ox O2 Del Method 07/28/24 07:19 36.7 C 91 H 18 121/78 96 Room Air 07/28/24 00:05 36.7 C 66 20 126/76 97 Room Air Laboratory Results 07/25/24 07/26/24 07/27/24 23:30 10:29 05:44 WBC 15.04 H 15.20 H RBC 4.23 3.91 L Hgb 12.7 11.5 L Hct 36.4 L 34.6 L MCV 86.1 88.5 MCH 30.0 29.4 MCHC 34.9 33.2 RDW Std Deviation 45.5 46.6 H RDW Coeff of Xiang 14.6 H 14.6 H Plt Count 188 174 MPV 9.9 10.3 Urine Color Yellow Urine Appearance Clear Urine pH 6.5 Ur Specific [place] 1.004 Urine Protein Negative Urine Glucose (UA) Negative Urine Ketones Trace H Urine Blood Negative Urine Nitrite Negative Urine Bilirubin Negative Urine Urobilinogen Negative Ur Leukocyte Esterase Negative Urine Comment Treponema pallidum Ab Negative 07/28/24 05:47 WBC RBC Hgb 11.2 L Hct 32.4 L MCV MCH MCHC RDW Std Deviation RDW Coeff of [place] Plt Count MPV Urine Color Urine Appearance Urine pH Ur Specific [place] Urine Protein Urine Glucose (UA) Urine Ketones Urine Blood Urine Nitrite Urine Bilirubin Urine Urobilinogen Ur Leukocyte Esterase Urine Comment Treponema pallidum Ab
== END 2024-07-28 11:15 | disposition home or self-care (01) | DRG 807 ==
LOC: OPB 19:45 → 4S1 19:45 → 4E2 07-26 20:30